=== PATIENT | female | born 1985 | race Caucasian/White ===

== ENCOUNTER → 2017-04-09 | Outpatient (CLI) | payer BC ==
[~2017-04-09] VITALS: Ht 160 cm; Wt 73.5 kg
[~2017-04-09] MED LIST: ALPR0.254 PO; CALC600T12 PO; CHOL400C9 PO; CYAN50008 PO; ENZY1TAB4 PO; FLAX340P PO; IBUP-2055 PO; LACT1CAP62 PO; LEVO5TAB28 PO; MAGN100T PO; OXYM-12 NS; OXYM30SP70 NS
[2017-04-09 15:06] VITALS: BP 119/73
[2017-04-09 15:43] LABS: BASOPHILS % (AUTO) 1 % (0-10); EOSINOPHILS # (AUTO) 0.1 10^3/uL (0.0-0.3); EOSINOPHILS % (AUTO) 1 % (0-10); LYMPHOCYTES # (AUTO) 3.4 X 10^3 (1.0-4.0); LYMPHOCYTES % (AUTO) 53 % (12-44); MEAN CORPUSCULAR HEMOGLOBIN 33 PG (25-34); MEAN CORPUSCULAR HGB CONC 35 G/DL (32-36); MEAN CORPUSCULAR VOLUME 93 FL (80-99); MEAN PLATELET VOLUME 10.9 FL (7.4-10.4); MONOCYTES # (AUTO) 0.6 X 10^3 (0.0-1.0); MONOCYTES % (AUTO) 9 % (0-12); NEUTROPHILS # (AUTO) 2.3 X 10^3 (1.8-7.8); NEUTROPHILS % (AUTO) 36 % (42-75); PLATELET COUNT 264 10^3/uL (130-400); RED BLOOD COUNT 4.74 10^6/uL (4.35-5.85); RED CELL DISTRIBUTION WIDTH 12.5 % (10.0-14.5); WHITE BLOOD COUNT 6.4 10^3/uL (4.3-11.0)
[2017-04-09 16:04] LABS: ANION GAP 9 MMOL/L (5-14); BLOOD UREA NITROGEN 13 MG/DL (7-18); BUN/CREATININE RATIO 16; CALCIUM 9.1 MG/DL (8.5-10.1); CARBON DIOXIDE 28 MMOL/L (21-32); CHLORIDE 105 MMOL/L (98-107); CREATININE SERUM 0.83 MG/DL (0.60-1.30); GFR ESTIMATED > 60; GLUCOSE 97 MG/DL (70-105); POTASSIUM 3.9 MMOL/L (3.6-5.0); SODIUM 142 MMOL/L (135-145)
== END ==
LOC: PREOP 14:41
PROVIDERS: ATTEND Obstetrics & Gynecology
DX: Z01.812 Encounter for preprocedural laboratory examination (principal); Z11.2 Encounter for screening for other bacterial diseases; E28.2 Polycystic ovarian syndrome; R10.2 Pelvic and perineal pain
CPT/HCPCS: 36415; 80048; 85025; 87081

== ENCOUNTER 2017-04-17 06:00 | Day surgery (SDC) | payer BC ==
[~2017-04-17] VITALS: Ht 160 cm; Wt 73.5 kg
[~2017-04-17 06:00] MED LIST changes: -HYDR-757 PO
[2017-04-17] MEDS: LACTATED RINGERS 1,000 ML IV PRN ×2 (06:30→08:10)
[2017-04-17] MEDS ORDERED: BUPIVACAINE 0.25% 30 ML (SENSORCAINE) VIAL ONE (06:32)
[2017-04-17] MEDS ORDERED: SEVOFLURANE (ULTANE) 15 ML INHAL SOLN ONE ×5 (06:40→07:55)
[2017-04-17] MEDS ORDERED: ONDANSETRON 4 MG/2 ML (SDV) Z0FRAN ONE (06:40)
[2017-04-17] MEDS ORDERED: DEXAMETHASONE 10 MG/ML (DECADRON) 1 ML VIAL ONE (06:40)
[2017-04-17] MEDS ORDERED: fentaNYL INJECTION 100 MCG/2 ML AMP ONE ×2 (06:40→08:03)
[2017-04-17] MEDS ORDERED: LIDOCAINE PF 2% 5 ML (XYLOCAINE) VIAL ONE (06:40)
[2017-04-17] MEDS ORDERED: proPOfol 200 MG/20 ML (DIPRIVAN) VIAL IV ONE (06:40)
[2017-04-17] MEDS ORDERED: ROCURONIUM 50 MG/5 ML (ZEMURON) VIAL IV ONE (06:40)
[2017-04-17] MEDS ORDERED: INDIGO CARMINE 8 MG/ML 5 ML AMP ONE (06:43)
[2017-04-17] MEDS ORDERED: MIDAZOLAM 2 MG/2 ML (VERSED) VIAL IV ONE (06:45)
[2017-04-17] MEDS ORDERED: NEOSTIGMINE (BLOXIVERZ ) 1 MG/1ML 10 ML VIAL ONE (06:52)
[2017-04-17] MEDS ORDERED: GLYCOPYRROLATE 0.2 MG/ML (ROBINUL) 2 ML VIAL ONE (06:52)
--- NOTE | 2017-04-17 07:22 | Progress Note-Pre Operative ---
Pre-Operative Progress Note H&P Reviewed The H&P was reviewed, patient examined and no changes noted. Date Seen by Provider: Apr 17, 2017 Time Seen by Provider: 07:15 Date H&P Reviewed: Apr 17, 2017 Time H&P Reviewed: 07:15 Pre-Operative Diagnosis: Pelvic pressure, PCOS, Tubal patentcy, Family hx of endometriosis CARI BARTON DO Apr 17, 2017 7:22 am
[2017-04-17 07:53] VITALS: BP 127/77
[2017-04-17] MEDS ORDERED: D5 LR IV SOLUTION 1,000 ML IV SCH (08:26)
--- NOTE | 2017-04-17 08:26 | Progress Note-Post Operative ---
Post-Operative Progess Note Surgeon (s)/Tractor Technician (s) Surgeon CARI BARTON DO Tractor Technician: na Pre-Operative Diagnosis Pelvic Pressure, PCOS, Tubal Patentcy, Family Hx of Endometriosis Post-Operative Diagnosis same Procedure & Operative Findings Date of Procedure 04/17/17 Procedure Performed/Findings dx laparoscopy with chromotubation, see dictation Anesthesia Type GETA Estimated Blood Loss Estimated blood loss (mL): min Specimens/Packing Specimens Removed none CARI BARTON DO Apr 17, 2017 8:26 am
--- NOTE | 2017-04-17 08:28 | Discharge Inst-Women's Service ---
Discharge Inst-Women's Serv Depart Medication/Instructions New, Converted or Re-Newed RX: RX on Chart Consults/Follow Up Additional Follow Up: Yes Orders/Referrals Dr. Cerrato in 10-14 days Activity Activity: Activity as Tolerated Driving Instructions: No Driving for 1 Week NO SMOKING: NO SMOKING Nothing Inside Vagina: No Douching, No [place], No Tampons Diet Discharge Diet: No Restrictions Symptoms to Report to : Bleeding Excessive, Pain Increased, Fever Over 101 Degrees F, Vaginal Bleeding Increase, Questions/Concerns For Any Problems or Questions: Contact Your Physician Skin/Wound Care Infection Signs and Symptoms: Increased Redness, Foul Odor of Wound, Increased Drainage, Skin Itchy or Has a Rash, Increased Swelling, Temperature Above 101 F Operative Area Clean and Dry: Keep Incision Clean/Dry Stitches/Yas/Dermabond: Dermabond, Care of Stitches Bathing Instructions: CARI Harrell DO Apr 17, 2017 8:28 am
[2017-04-17] MEDS ORDERED: HYDR-757 PO ×2 (08:29)
[2017-04-17] MEDS ORDERED: HYDROcodone/APAP 5 MG/325 MG (LORTAB) TAB PO PRN (08:30)
[2017-04-17] MEDS ORDERED: KETOROLAC 30 MG/ML VIAL IVP ONE ×2 (08:30)
[2017-04-17] MEDS ORDERED: fentaNYL INJECTION 100 MCG/2 ML AMP IVP PRN (08:30)
[2017-04-17] MEDS ORDERED: ONDANSETRON 4 MG/2 ML (SDV) Z0FRAN IVP PRN (08:30)
[2017-04-17] MEDS ORDERED: MEPERIDINE (DEMEROL) INJ 50 MG/ML IVP PRN (08:30)
[2017-04-17] MEDS: morphine INJ 10 MG/ML 1ML (SYR OR VIAL) IVP PRN ×2 (08:37→08:41)
[2017-04-17] MEDS: HYDROmorphone (DILAUDID) 2 MG/ML VIAL IVP PRN ×2 (08:46→08:56)
[2017-04-17] MEDS: ONDANSETRON 4 MG/2 ML (SDV) Z0FRAN IVP PRN ×2 (09:00→09:52)
[2017-04-17 09:10] VITALS: BP 113/74
[2017-04-17 09:40] VITALS: BP 115/75
[2017-04-17 10:10] VITALS: BP 110/79
[2017-04-17 11:16] VITALS: BP 110/79
--- NOTE | 2017-04-17 12:50 | OPERATIVE REPORT ---
DATE OF SERVICE: PREOPERATIVE DIAGNOSES: 1. A 32-year-old female with pelvic pressure. 2. Polycystic ovarian syndrome. 3. Tubal patency. 4. Family history of endometriosis. POSTOPERATIVE DIAGNOSES: 1. A 32-year-old female with pelvic pressure. 2. Polycystic ovarian syndrome. 3. Tubal patency, confirmed. 4. Family history of endometriosis. PROCEDURES: Diagnostic laparoscopy with chromotubation. SURGEON: Ruy Cerrato D.O. ANESTHESIA: General endotracheal. ESTIMATED BLOOD LOSS: Minimal. URINE OUTPUT: 100 mL clear at the end of the procedure. FLUIDS: 1200 mL Lactated Ringer's solution. FINDINGS: Normal appearing uterus with patent bilateral fallopian tubes, patent due to chromotubation, grossly normal ovaries, fallopian tubes and pelvic anatomy as well as upper abdominal anatomy. SPECIMEN SENT: None. INDICATIONS FOR PROCEDURE: This is a 32-year-old female patient who had seen our nurse practitioner, Ginger Suero for infertility management in the past. She has already undergone semen analysis; however, did have complaints of some chronic pelvic pressure as well as painful periods, pelvic pressure that occurred with periods and a strong family history of endometriosis including several first degree relatives that were diagnosed endometriosis and had received hysterectomy for endometriosis. There were concerns for tubal patency as well as endometriosis and she had never had any type of a diagnostic procedure performed to confirm or deny the presence of endometriosis. Due to her history of complaints as well as ongoing fertility and history of potential endometriosis, I discussed with the patient proceeding with diagnostic laparoscopy with chromotubation. Risks of the procedure were discussed with the patient in detail including risk of bleeding, infection, damaging internal structures including but not limited to bowel, bladder, ureter, kidneys, risk of damaging her long-term fertility, risk for postoperative blood clot, hematoma formation, risk from anesthesia and even . Everything was discussed with the patient, consent was obtained in the preoperative area. The patient was taken to the operating room. OPERATIVE REPORT IN DETAIL: Once in the operating room, general anesthesia was found to be adequate. She was placed in dorsal lithotomy position, prepped and draped in normal sterile fashion. A weighted speculum was inserted in the patient's vagina. After Layne catheter was placed in sterile technique, a right angle retractor is used to visualize the cervix. It was grasped at 12 o'clock position using a long Allis clamp. I then gently sound the uterine cavity that are sounded to be 8 cm. I then selected a Kronner uterine manipulator and placed in the uterine cavity, deploying the balloon to a depth of 8 cm. At the removal all other instruments from the patient's vagina, I performed a change of gloves and took my attention to the abdomen where infraumbilically I infiltrated this area using 0.25% Marcaine and make a 5 mm incision of this injection site. Introduced a Veress needle through this incision until intraperitoneal placement was confirmed using a saline drop test. I then proceed with insufflation using CO2 gas to an opening pressure 3 mmHg as noted. I proceeded to measure pressure of 50 mmHg, which when removed the Veress needle introduced a 5 mm blunt trocar. Once this was in place, I am able to confirm intrauterine placement using a 5 mm laparoscope. I did have the patient placed in steep Trendelenburg, I am able to visualize all the pelvic anatomy as described in the findings above. I do require a second trocar site to manipulate the ovaries. I therefore placed a suprapubic trocar 5 mm in similar fashion. An incision was made with a knife and the trocar was placed under direct visualization of the laparoscope. Once this was in place, I am able to confirm normal bilateral ovaries and the absence of any type of endometriosis including endometriosis in the ovarian fossa. I then performed chromotubation using indigo carmine, there is good dye spillage from bilateral tubes at which point I deemed the procedure complete. I then copiously irrigated the pelvis using normal saline. There was no active bleeding from anywhere. I then released insufflation from my trocar sites and removed the laparoscopic trocars. The skin was reapproximated using Dermabond. All instruments were removed from the patient including the Kronner uterine manipulator and the Layne catheter. The patient tolerated the procedure well and was taken to recovery in stable condition. Lap and sponge counts correct. Instruments counts are correct as well. Job ID: [id number] DocumentID: [id number] Dictated Date: 04/17/2017 08:38:26 Lead Sewage Plant Operator Date: 04/17/2017 12:49:43 Dictated By: DO SIVAN HERR
--- OUTSIDE RECORDS SUMMARY | 2017-04-18 08:42 | XMS REPORT ---
Author Kam Lobo [facility] Address [address] [place], [place] [id number] Care Team Providers Care Coding Quality Analyst Name Role Phone Kam Sofia PCP Unavailable Allergies and Adverse Reactions Not available. Plan of Treatment Not available. Medications Not available. Problem List Description Status Onset H/O renal calculi Active 11/13/2015 Vital Signs Date Time BP-Sys(mm[Hg] BP-Delmis(mm[Hg]) HR(bpm) RR(rpm) Temp WT HT HC BMI BSA BMI Percentile O2 Sat(%) 11/13/2015 11:37:00 AM 120 mmHg 74 mmHg 90 bpm 16 rpm 97.8 F 180 lbs 63 in 31.89 kg/m2 1.91 m2 97 % 10/10/2015 12:04:00 PM 122 mmHg 78 mmHg 87 bpm 16 rpm 99.2 F 180 lbs 63 in 31.8852 kg/m 1.905 m 98 % Social History Not available. History of Procedures Not available. Results Summary Data and Description Results 10/11/2015 6:30 AM Color Foster Ca oxalate dihydrate 25.0 %Ca oxalate monohydr. 40 %Calcium phosphate 35.0 %Uric acid dihydrate TESTING MACHINE OPERATOR RatioAmmonium acid urate TESTING MACHINE OPERATOR % Ca hydrogen phos. TESTING MACHINE OPERATOR %Cystine TESTING MACHINE OPERATOR %Cholesterol TESTING MACHINE OPERATOR %Calcium bilirubinate TESTING MACHINE OPERATOR % Calcium carbonate TESTING MACHINE OPERATOR %Triamterene TESTING MACHINE OPERATOR %Newberyite TESTING MACHINE OPERATOR %Nidus No Nidus visualized 10/19/2015 4:10 PM CALCIUM 9.10 mg/dLURIC ACID 4.8 mg/dL 10/22/2015 8:32 AM CALCIUM UR 285.0 mg/dLCALCIUM UR 24H 3278.0 mg/24 hrNA UR 153.0 mEq/MEN'S CUSTOM HAIR PIECE CONSULTANT UR 24H 176.0 URIC ACID UR 48.20 mg/dLURIC ACID UR 24H 554.0 mg/24 hrPhosphorus, Urine 77.80 mg/dLPhosphorus, Urine 24hr 894.7 Citric Acid, Urine 438.0 mg/LCitric Acid, U, 24hr 504 History Of Immunizations Not available. History of Past Illness Name Date of Onset Comments H/O renal calculi 11/13/2015 H/O renal calculi Nov 13 2015 11:40AM Payers Insurance Name Company Name Plan Name Plan Number Policy Number Policy Group Number [facility] Date [id number] N/A History of Encounters Visit Date Visit Type Provider 11/13/2015 Office visit V Tania Sofia MD 10/10/2015 Office visit V Tania Sofia MD
--- OUTSIDE RECORDS SUMMARY | 2017-04-18 08:42 | XMS REPORT | Continuity of Care Document ---
Demographics Preferred Language Unknown Marital Status Unknown Buddhism Affiliation Unknown Race Unknown Ethnic Group Unknown Author Author [facility] Address Unknown Phone Unavailable Allergies There is no data. Medications There is no data. Problems Date Dx Coded Attending Type Code Diagnosis Diagnosed By 11/25/2011 784.2 SWELLING MASS OR LUMP IN HEAD AND NECK 11/25/2011 785.9 OTHER SYMPTOMS INVOLVING CARDIOVASCULAR SYSTEM 11/25/2011 V70.0 ROUTINE GENERAL MEDICAL EXAMINATION AT A HEALTH CARE FACILITY 10/02/2012 709.9 SKIN LESIONS 10/02/2012 728.85 MUSCLE SPASM 10/02/2012 V58.69 HIGH RISK MEDICATION 07/26/2015 PHIL YEBOAH Ot N93.8 10/05/2015 PHIL YEBOAH Ot N93.8 OTHER SPECIFIED ABNORMAL UTERINE AND VAG 10/06/2015 ASIYA PAGE APRN Ot N20.0 CALCULUS OF KIDNEY 11/03/2015 ASIYA PAGE APRN Ot N20.0 CALCULUS OF KIDNEY Procedures Code [place] [address] ROUTINE VENIPUNCTURE 10/02/2012 59391 CMP 10/02/2012 2916286 GFR CALC (RESULT ONLY) 10/02/2012 Results Test Result Range Complete blood count (CBC) with automated white blood cell (WBC) differential - 04/09/17 15:15 Blood leukocytes automated count (number/volume) 6.4 10*3/uL 4.3-11.0 Blood erythrocytes automated count (number/volume) 4.74 10*6/uL 4.35-5.85 Venous blood hemoglobin measurement (mass/volume) 15.5 g/dL 11.5-16.0 Blood hematocrit (volume fraction) 44 % 35-52 Automated erythrocyte mean corpuscular volume 93 [foz_us] 80-99 Automated erythrocyte mean corpuscular hemoglobin (mass per erythrocyte) 33 pg 25-34 Automated erythrocyte mean corpuscular hemoglobin concentration measurement ( mass/volume) 35 g/dL 32-36 Automated erythrocyte distribution width ratio 12.5 % 10.0-14.5 Automated blood platelet count (count/volume) 264 10*3/uL 130-400 Automated blood platelet mean volume measurement 10.9 [foz_us] 7.4-10.4 Automated blood neutrophils/100 leukocytes 36 % 42-75 Automated blood lymphocytes/100 leukocytes 53 % 12-44 Blood monocytes/100 leukocytes 9 % 0-12 Automated blood eosinophils/100 leukocytes 1 % 0-10 Automated blood basophils/100 leukocytes 1 % 0-10 Blood neutrophils automated count (number/volume) 2.3 10*3 1.8-7.8 Blood lymphocytes automated count (number/volume) 3.4 10*3 1.0-4.0 Blood monocytes automated count (number/volume) 0.6 10*3 0.0-1.0 Automated eosinophil count 0.1 10*3/uL 0.0-0.3 Automated blood basophil count (count/volume) 0.0 10*3/uL 0.0-0.1 Whole blood basic metabolic panel - 04/09/17 15:15 Serum or plasma sodium measurement (moles/volume) 142 mmol/L 135-145 Serum or plasma potassium measurement (moles/volume) 3.9 mmol/L 3.6-5.0 Serum or plasma chloride measurement (moles/volume) 105 mmol/L 98-107 Carbon dioxide 28 mmol/L 21-32 Serum or plasma anion gap determination (moles/volume) 9 mmol/L 5-14 Serum or plasma urea nitrogen measurement (mass/volume) 13 mg/dL 7-18 Serum or plasma creatinine measurement (mass/volume) 0.83 mg/dL 0.60-1.30 Serum or plasma urea nitrogen/creatinine mass ratio 16 NRG Serum or plasma creatinine measurement with calculation of estimated glomerular filtration rate > NRG Serum or plasma glucose measurement (mass/volume) 97 mg/dL 70-105 Serum or plasma calcium measurement (mass/volume) 9.1 mg/dL 8.5-10.1 Methicillin resistant Staphylococcus aureus (MRSA) screening culture - 15:20 Methicillin resistant Staphylococcus aureus (MRSA) screening culture NEG NRG Urine beta human chorionic gonadotropin (hCG) measurement - 04/17/17 06:15 Urine beta human chorionic gonadotropin (hCG) measurement NEGATIVE NEGATIVE Blood type T Indirect antibody screen panel - 04/17/17 06:58 ABO+Rh group ABP NRG Transfusion band number [id number] NRG Blood group antibody screen NEGATIVE NRG Encounters ACCT No. Visit Date/Time Discharge Status Pt. Type Provider Facility Loc./Unit Complaint [id number] 10/02/2012 15:23:00 Document Registration [id number] 10/05/2015 16:32:00 10/05/2015 23:59:59 CLS Outpatient ASIYA PAGE APRN [facility] [id number] 07/12/2015 14:31:00 07/12/2015 23:59:59 CLS Outpatient PHIL YEBOAH [facility] [id number] 04/17/2017 07:30:00 PEN Preadmit CARI BARTON DO [facility] PCOS,PELVIC PRESSURE,TUBAL PATENCY [id number] 04/09/2017 15:43:00 Document Registration
--- OUTSIDE RECORDS SUMMARY | 2017-04-18 08:42 | XMS REPORT | CCD ---
Author Author NITA TORRES Unknown Address [address] [place] [id number] Care Team Providers Care Chief Technology Officer Name Role Phone DESIRE COE, CARI Atkinson Attphyjennifer CARI PHIPPS MD Vital Signs Unknown or Not Available. Allergies Allergy Code Allergy Type Reaction Status No Known Allergies 0 No known allergies Active Procedures Procedure Code Procedure Type Date CT ABD AND PELVIS W/O CONTRAST 585159261 SNOMED CT 2015 UA ROUTINE C&S IF IND 375920487 SNOMED CT 09/22/[address] 09/22/2015 COMPREHENSIVE METABOLIC PANEL 205162833 SNOMED CT 2015 CBC W/ AUTO DIFF (RFLX MAN DIFF IF IND) 2682060 SNOMED CT 09/22/2015 ^UA WITH MICRO 830082068 SNOMED CT 09/22/2015 ^CBC W/AUTO DIFF 2084164 SNOMED CT 09/22/2015 History of Immunizations Unknown or Not Available. Problems Unknown or Not Available. Results COMPREHENSIVE METABOLIC PANEL - Collect Date/Time: 09/22/2015 15:05 Test Name Code Test Result Test Units Test Ref Range GLUCOSE 2345-7 90 MG/DL L=70 H=100 SODIUM 2951-2 140 MEQ/L L=135 H=148 POTASSIUM 2823-3 3.9 MEQ/L L=3.5 H=5.3 CHLORIDE 2075-0 106 MEQ/L L=96 H=110 CO2 2028-9 24 MEQ/L L=22 H=29 BUN 3094-0 11 MG/DL L=8 H=22 CREATININE 2160-0 0.8 MG/DL L=0.6 H=1.6 SGOT/AST 1920-8 12 IU/L L=10 H=40 SGPT/ALT 1742-6 14 IU/L L=8 H=54 ALK PHOS 6768-6 71 IU/L L=35 H=115 TOTAL PROTEIN 2885-2 6.2 G/DL L=5.5 H=8.5 ALBUMIN 1751-7 3.9 G/DL L=3.1 H=5.4 TOTAL BILI 1975-2 0.3 MG/DL L=0.0 H=1.5 CALCIUM 66490-2 8.8 MG/DL L=8.2 H=10.6 AGE 30 yrs GFR NonAA 85 GFR AA 103 eGFR >60 N/A eGFR AA* >60 N/A CBC W/ AUTO DIFF (RFLX MAN DIFF IF IND) - Collect Date/Time: 09/22/2015 15:05 Test Name Code Test Result Test Units Test Ref Range WBC 09012-0 6.9 TH/CMM L=4.5 H=10.8 RBC 789-8 4.22 ML/CMM L=4.20 H=5.40 HGB 718-7 13.7 G/DL L=12.0 H=16.0 HCT 4544-3 39.5 % L=37.0 H=47.0 MCV 94 FL L=81 H=99 MCH 32.5 PG L=27.0 H=33.0 MCHC 34.7 G/DL L=31.0 H=36.0 RDW SD 40 FL L=36 H=50 RDW CV 11.7 % L=0.0 H=14.8 MPV 9.7 FL L=9.3 H=12.5 PLT 777-3 260 TH/CMM L=130 H=440 NRBC# 0.00 TH/CMM L=0.00 H=0.00 NRBC% 0.0 /100WBC L=0.0 H=2.0 %NEUT 34.4 % %LYMP 56.1 % %MONO 7.4 % %EOS 1.3 % %BASO 0.7 % #NEUT 2.35 TH/CMM L=2.10 H=8.20 #LYMP 3.85 TH/CMM L=0.90 H=5.20 #MONO 0.51 TH/CMM L=0.16 H=1.00 #EOS 0.09 TH/CMM L=0.00 H=0.80 #BASO 0.05 TH/CMM L=0.00 H=0.20 MANUAL DIFF NOT IND N/A UA ROUTINE C&S IF IND - Collect Date/Time: 09/22/2015 15:30 Test Name Code Test Result Test Units Test Ref Range COLOR ORANGE N/A NL: YELLOW APPEARANCE HAZY N/A NL: CLEAR SPEC GRAV >=1.030 N/A NL: 1.002 - 1.022 pH 6.0 N/A NL: 5 - 9 PROTEIN 100 N/A NL: NEGATIVE mg/dl GLUCOSE NEGATIVE N/A NL: NEGATIVE mg/dl KETONE NEGATIVE N/A NL: NEGATIVE mg/dl BILIRUBIN NEGATIVE N/A NL: NEGATIVE BLOOD LARGE N/A NL: NEGATIVE NITRITE NEGATIVE N/A NL: NEGATIVE LEUK SCREEN NEGATIVE N/A NL: NEGATIVE MICRO INDICATED? SEE BELOW N/A WBC/HPF 0-5 N/A NL: NEGATIVE RBC/HPF TNTC N/A NL: NEGATIVE CASTS/LPF NEGATIVE N/A NL: NEGATIVE CRYSTALS NEGATIVE N/A NL: NEGATIVE MUCOUS THRDS 1+ N/A NL: NEGATIVE BACTERIA FEW N/A NL: NEGATIVE EPITH CELLS FEW SQUAMOUS N/A NL: NEGATIVE TRICHOMONAS NEGATIVE N/A NL: NEGATIVE YEAST NEGATIVE N/A NL: NEGATIVE CULT SET UP? NO N/A TEST - Collect Date/Time: 09/22/2015 15:05 Test Name Code Test Result Test Units Test Ref Range TEST 2118-8 NEGATIVE N/A Active Medications Unknown or Not Available. Medications Administered During Visit Unknown or Not Available. Encounters Encounter Diagnosis Diagnosis Code Start Date Calculus of ureter N201 09/22/2015 Social History Smoking Status Code Start Date End Date Never smoker [id number] Patient Decision Aids Unknown or Not Available. Discharge Instructions You were admitted to [facility] on 09/22/2015 14:22 with a principal diagnosis of Calculus of ureter You had the following tests done: CBC W/ AUTO DIFF (RFLX MAN DIFF IF IND) COMPREHENSIVE METABOLIC PANEL TEST UA ROUTINE C&S IF IND You were discharged from [facility] on 09/22/2015 17:09 Should you have any questions prior to discharge, please contact a member of your healthcare team. If you have left the hospital and have any questions, please contact your primary care physician. Chief Complaint and Reason For Visit Chief Complaint Date of Onset PELVIC PAIN FLANK PAIN Function Status Unknown or Not Available. Plan of Care Unknown or Not Available. Referral/Transition of Care Unknown or Not Available.
== END 2017-04-17 11:16 | disposition home or self-care (01) ==
LOC: SDC 06:00
PROVIDERS: ATTEND Obstetrics & Gynecology
DX: E28.2 Polycystic ovarian syndrome (principal); R10.2 Pelvic and perineal pain; Z31.41 Encounter for fertility testing; Z84.2 Family history of other diseases of the genitourinary system; F41.9 Anxiety disorder, unspecified; Z87.891 Personal history of nicotine dependence; Z79.899 Other long term (current) drug therapy
CPT/HCPCS: 84703; 86850; 86900; 86901

== ENCOUNTER → 2017-04-17 | Outpatient (CLI) | payer BC ==
[~2017-04-17] MED LIST changes: +HYDR-757 PO
== END ==
LOC: LAB 08:19
PROVIDERS: ATTEND Nurse Practitioner Family
DX: R55 Syncope and collapse (principal); R53.81 Other malaise; R42 Dizziness and giddiness
CPT/HCPCS: 36415; 86376; 86800; 94664

== ENCOUNTER → 2018-09-14 | Outpatient (CLI) | payer BC ==
[~2018-09-14] MED LIST changes: +HYDR-4226 PO
--- NOTE | 2018-09-14 14:28 | Diagnostic Imaging Report ---
PROCEDURE: US Non-OB Transvaginal. TECHNIQUE: Multiple real-time grayscale images were obtained of the pelvis in various projections endovaginally. INDICATION: Infertility. FINDINGS: The uterus measures 6.8 x 4.2 x 2.2 cm. Endometrium is approximately 5 mm in thickness. No myometrial mass is detected. Right ovary measures 5.7 x 3.2 x 3.9 cm. Left ovary measures 6.3 x 3.2 x 3.2 cm. There are at least 24 subcentimeter follicles involving the right ovary. There are at least 24 subcentimeter follicles involving the left ovary. There is a single follicle in the left ovary measuring 12 mm. There is blood flow to both ovaries. No free fluid is seen. IMPRESSION: Bilateral ovarian follicles, as described. Dictated by: Dictated on workstation # [id number]
== END ==
LOC: RAD 13:02
DX: N97.9 Female infertility, unspecified (principal)
CPT/HCPCS: 36415; 76830; 82670

== ENCOUNTER → 2020-12-11 | Outpatient (CLI) | payer BC ==
[~2020-12-11] MED LIST changes: +ALPR.25T PO; -ALPR0.254 PO; -CALC600T12 PO; +CALC600T91 PO; -CYAN50008 PO; +CYAN50009 PO; -IBUP-2055 PO; +IBUP-2473 PO; +OX05NA15 NS; -OXYM30SP70 NS
--- NOTE | 2020-12-11 12:33 | Diagnostic Imaging Report ---
INDICATION: . Anatomic survey. 20 weeks and 3 days gestation. TECHNIQUE: Multiple real-time grayscale images were obtained over the gravid uterus. COMPARISON: None FINDINGS: There is a single live intrauterine gestation in breech/transverse presentation. The cervix measures 5.4 cm in length. However there is funneling of the cervix and endocervical fluid and the closed portion measures 2.3 cm. The placenta is anterior without previa. The amniotic fluid appears subjectively normal. A vertical pocket measuring 3.8 cm is present. Biometric measurements are given below. The lateral ventricles, cerebellum, and cisterna magna are seen. The nose and lips are seen. Four-chamber heart is suboptimally seen. The left and right ventricular outflow tracks are seen. The stomach is seen. The kidneys are seen. Cord insertion is seen. Three-vessel cord is demonstrated with 2 uterine arteries. The profile is seen. The upper and lower spine is seen. Biometrical measurements are as follows: Biparietal 4.96 cm, age 21 weeks 1 days. Head circumference 18.67 cm, age 21 weeks 0 days. Abdominal circumference 15.62 cm, age 20 weeks 6 days. Femur length 3.26 cm, age 20 weeks 2 days. Sonographic estimate age: 20 weeks 6 days. Sonographic estimated date of delivery: 04/24/21. Estimated Weight: 363 gm (+/- 53 gm). LMP percentile: 53%. heart rate: 143 beats per minute. number: 1 of 1. IMPRESSION: 1. Single live intrauterine gestation measuring at 20 weeks and 6 days which is within range of the clinical dates. 2. Funneling of the cervix with endocervical fluid. The closed portion measures 2.3 cm, concerning for incompetence. Recommend follow-up. 3. Anatomic survey with no abnormality seen. The four-chamber heart is suboptimally visualized.\ Faxed to Ruy Cerrato DO at 12:32 p.m. by pablo. Dictated by: Dictated on workstation # [id number]
== END ==
LOC: RAD 09:30
PROVIDERS: ATTEND Obstetrics & Gynecology
DX: Z34.02 Encounter for supervision of normal first pregnancy, second trimester (principal)
CPT/HCPCS: 76805

== ENCOUNTER 2020-12-26 12:46 | Outpatient (CLI) | payer BC ==
[2020-12-26 13:00] VITALS: BP 161/90
[2020-12-26] MEDS ORDERED: AMPICILLIN FOR IV USE 2,000 MG in WATER (STERILE) FOR INJECTION 14.8 ML IV ONE (13:00)
[2020-12-26] MEDS ORDERED: INDOMETHACIN 25 MG (INDOCIN) CAP PO ONE (13:00)
[2020-12-26] MEDS ORDERED: D5 LR IV SOLUTION 1,000 ML IV SCH (13:00)
[2020-12-26 13:34] VITALS: BP 121/84
[2020-12-26] MEDS ORDERED: BETAMETHASONE ACE/NA PHOS 6 MG/ML (CELESTONE SOLUSPAN) ONE (13:38)
[2020-12-26 13:41] LABS: BASOPHILS % (AUTO) 0 % (0-10); EOSINOPHILS # (AUTO) 0.1 10^3/uL (0.0-0.3); EOSINOPHILS % (AUTO) 1 % (0-10); HEMATOCRIT 39 % (35-52); HEMOGLOBIN 13.8 g/dL (11.5-16.0); LYMPHOCYTES # (AUTO) 2.6 10^3/uL (1.0-4.0); LYMPHOCYTES % (AUTO) 26 % (12-44); MEAN CORPUSCULAR HEMOGLOBIN 33 pg (25-34); MEAN CORPUSCULAR HGB CONC 36 g/dL (32-36); MEAN CORPUSCULAR VOLUME 93 fL (80-99); MEAN PLATELET VOLUME 10.6 fL (9.0-12.2); MONOCYTES # (AUTO) 0.9 10^3/uL (0.0-1.0); MONOCYTES % (AUTO) 9 % (0-12); NEUTROPHILS # (AUTO) 6.4 10^3/uL (1.8-7.8); NEUTROPHILS % (AUTO) 63 % (42-75); PLATELET COUNT 264 10^3/uL (130-400); WHITE BLOOD COUNT 10.1 10^3/uL (4.3-11.0)
[2020-12-26] MEDS ORDERED: AZITHROMYCIN INJECTION 500 MG/5 ML VIAL ONE (13:41)
[2020-12-26] MEDS ORDERED: WATER (STERILE) FOR INJECTION 0 ML ONE (13:44)
[2020-12-26] MEDS ORDERED: NS (IVPB) 250 ML ONE (13:47)
[2020-12-26 13:52] VITALS: BP 161/90
[2020-12-26 14:05] VITALS: BP 111/71
--- NOTE | 2020-12-26 14:10 | History & Physical-OB ---
OB - Chief Complaint & HPI Date/Time Date of Admission: Date of Admission: Date seen by a Provider: Dec 26, 2020 Time Seen by a Provider: 12:30 Chief Complaint/History OB-Reason for Admission/Chief: Obstetrical Complication Hx : 2 Hx Para: 0 Expected Date of Delivery: Apr 27, 2021 Other reason for admission: Patient to hospital from office due to bulging membranes noted on spec exam in office, approx 1 cm visually dialated. She was noted to have funnelling at 20 week US, follow up US and exam done today due to this TA US finding. Patient is completely asymptomatic. Admission Nurse Assessment Rev: Yes History of Labs AB pos Antibody neg RI RPR NR HBsAg NR HIV NR GC neg GBS unknown Laboratory Tests Test 12/26/20 13:08 Range/Units White Blood Count 10.1 4.3-11.0 10^3/uL Red Blood Count 4.14 3.80-5.11 10^6/uL Hemoglobin 13.8 11.5-16.0 g/dL Hematocrit 39 35-52 % Mean Corpuscular Volume 93 80-99 fL Mean Corpuscular Hemoglobin 33 25-34 pg Mean Corpuscular Hemoglobin Concent 36 32-36 g/dL Red Cell Distribution Width 13.2 10.0-14.5 % Platelet Count 264 130-400 10^3/uL Mean Platelet Volume 10.6 9.0-12.2 fL Immature Granulocyte % (Auto) 0 % Neutrophils (%) (Auto) 63 42-75 % Lymphocytes (%) (Auto) 26 12-44 % Monocytes (%) (Auto) 9 0-12 % Eosinophils (%) (Auto) 1 0-10 % Basophils (%) (Auto) 0 0-10 % Neutrophils # (Auto) 6.4 1.8-7.8 10^3/uL Lymphocytes # (Auto) 2.6 1.0-4.0 10^3/uL Monocytes # (Auto) 0.9 0.0-1.0 10^3/uL Eosinophils # (Auto) 0.1 0.0-0.3 10^3/uL Basophils # (Auto) 0.0 0.0-0.1 10^3/uL Immature Granulocyte # (Auto) 0.0 0.0-0.1 10^3/uL Allergies and Home Medications Allergies Coded Allergies: No Known Drug Allergies (Unverified , 12/27/17) Patient Home Medication List Home Medication List Reviewed: Yes ALPRAZolam (Xanax Tablet) 0.25 Mg Tablet, 0.25 MG PO DAILY, (Reported) Entered as Reported by: MELITA MOLINA on 04/09/17 1502 Calcium Carbonate (Calcium) 600 Mg Tablet, 600 MG PO DAILY, (Reported) Entered as Reported by: MELITA MOLINA on 04/09/17 1502 Cholecalciferol (Vitamin D3) (Vitamin D3) 400 Unit Capsule, 400 UNIT PO DAILY, (Reported) Entered as Reported by: MELITA MOLINA on 04/09/17 1502 Cyanocobalamin (Vitamin B-12) (Vitamin B12) 5,000 Mcg Tab.rapdis, 5,000 MCG PO BIDPC, (Reported) Entered as Reported by: MELITA MOLINA on 04/09/17 1502 Enzymes,Digestive (Enzymatic Digestant) 1 Each Tablet, 1 EACH PO DAILY, (Reported) Entered as Reported by: MELITA MOLINA on 04/09/17 1502 Flaxseed (Flaxseed) 340 Gm Powder, 340 GM PO DAILY, (Reported) Entered as Reported by: MELITA MOLINA on 04/09/17 1502 Hydrocodone/Acetaminophen (Hydrocodone/Acetaminophen 5 MG/325 MG TAB) 1 Each Tablet, 1-2 TAB PO Q4H PRN for PAIN-MODERATE Prescribed by: CARI BARTON on 04/17/17 0829 Ibuprofen (Ibuprofen) 200 Mg Tablet, 800 MG PO PRN, (Reported) Entered as Reported by: MELITA MOLINA on 04/09/17 1502 Lactobacillus Acidophilus (Probiotic) 1 Each Capsule, 1 EACH PO DAILY, (Reported) Entered as Reported by: MELITA MOLINA on 04/09/17 1502 Levocetirizine Dihydrochloride (Xyzal) 5 Mg Tablet, 5 MG PO HS, (Reported) Entered as Reported by: MELITA MOLINA on 04/09/17 1502 Magnesium Glycinate (Mag Glycinate) 100 Mg Tablet, 100 MG PO QID, (Reported) Entered as Reported by: MELITA MOLINA on 04/09/17 1502 Oxymetazoline HCl (Oxymetazoline HCl) 30 Ml [place], 1 SPRAY NS BID, (Reported) Entered as Reported by: MELITA MOLINA on 04/09/17 1502 OB - History Hx of Present Care: Yes Ultrasounds: Normal mid trimester US (funneling membranes) Obstetrical Complications: None Medical Complications: None Obstetrical History Hx : 2 Hx Para: 0 Hx Total # of Abortions (Spona: 1 Delivery History Hx Blood Disorders: No Adverse Rxn to Tranfusion: No (N/A) Patient Past Medical History n/a Social History/Family History Alcohol Use: Denies Use Recreational Drug Use: No Immunizations Tetanus Booster (TDap): Unknown OB - Admission Exam Physical Exam Vitals: Vital Signs 12/26/20 13:52 Temp 36.7 Pulse 105 Resp 20 Pulse Ox 97 O2 Delivery Room Air HEENT: NCAT Heart: Rhythm Normal Lungs: Clear Abdomen: Gravid Extremities: Normal Reflexes: Normal Cervical Dilatation: 1cm Membranes: Intact Heart Rate: 130's Contractions on Admission: None Labs Laboratory Tests Test 12/26/20 13:08 Range/Units White Blood Count 10.1 4.3-11.0 10^3/uL Red Blood Count 4.14 3.80-5.11 10^6/uL Hemoglobin 13.8 11.5-16.0 g/dL Hematocrit 39 35-52 % Mean Corpuscular Volume 93 80-99 fL Mean Corpuscular Hemoglobin 33 25-34 pg Mean Corpuscular Hemoglobin Concent 36 32-36 g/dL Red Cell Distribution Width 13.2 10.0-14.5 % Platelet Count 264 130-400 10^3/uL Mean Platelet Volume 10.6 9.0-12.2 fL Immature Granulocyte % (Auto) 0 % Neutrophils (%) (Auto) 63 42-75 % Lymphocytes (%) (Auto) 26 12-44 % Monocytes (%) (Auto) 9 0-12 % Eosinophils (%) (Auto) 1 0-10 % Basophils (%) (Auto) 0 0-10 % Neutrophils # (Auto) 6.4 1.8-7.8 10^3/uL Lymphocytes # (Auto) 2.6 1.0-4.0 10^3/uL Monocytes # (Auto) 0.9 0.0-1.0 10^3/uL Eosinophils # (Auto) 0.1 0.0-0.3 10^3/uL Basophils # (Auto) 0.0 0.0-0.1 10^3/uL Immature Granulocyte # (Auto) 0.0 0.0-0.1 10^3/uL OB - Assessment/Plan/Diagnosis Assessment Admission Dx 35 yo @ 22.4 weeks Cervical insufficiency Admission Status: Inpatient Order (span 2 midnights) Reason for Inpatient Admission: Cervical insufficiency Plan Other Plan Spoke with MFM at [facility] Dr. Parekh, accepted transfer for consideration of rescue cerclage. Indocin started here with BMZ given. Amp/Azithromycin dosed. Awaiting transfer. CARI BARTON DO Dec 26, 2020 14:10
[2020-12-26 14:13] LABS: BILIRUBIN,URINE NEGATIVE (NEGATIVE); CLARITY,URINE CLEAR; COLOR,URINE YELLOW; GLUCOSE, URINE (UA) NEGATIVE (NEGATIVE); KETONES,URINE TRACE (NEGATIVE); LEUKOCYTE ESTERASE ,URINE TRACE (NEGATIVE); NITRITE,URINE NEGATIVE (NEGATIVE); PH,URINE 7.5 (5-9); PROTEIN,URINE NEGATIVE (NEGATIVE)
[2020-12-26 14:23] LABS: BACTERIA,URINE FEW /HPF; SQUAMOUS EPITHELIAL CELL,UR 0-2 /HPF; WBC,URINE RARE /HPF
[2020-12-26 14:25] VITALS: BP 119/74
[2020-12-26] MEDS ORDERED: INDOMETHACIN 25 MG (INDOCIN) CAP PO SCH (18:00)
[2020-12-26] MEDS ORDERED: AMPICILLIN FOR IV USE 1,000 MG in WATER (STERILE) FOR INJECTION 7.4 ML IV SCH (18:00)
[2020-12-27] MEDS ORDERED: BETAMETHASONE ACE/NA PHOS 6 MG/ML (CELESTONE SOLUSPAN) IM SCH (09:00)
[2020-12-27] MEDS ORDERED: AZITHROMYCIN INJECTION 500 MG in NS (IVPB) 250 ML IV SCH (09:00)
== END 2020-12-26 14:45 ==
LOC: WSo 12:46 → LDRP 12:47 → WSo 14:45
PROVIDERS: ATTEND Obstetrics & Gynecology
DX: O34.32 Maternal care for cervical incompetence, second trimester (principal); Z3A.22 22 weeks gestation of pregnancy
CPT/HCPCS: 36415; 81000; 85025; 86141; 86850; 86900; 86901; 96361; 96372; 96374; 96375

== ENCOUNTER 2021-01-06 13:30 | Outpatient (CLI) | payer BC ==
[~2021-01-06] VITALS: Ht 162.6 cm; Wt 82.3 kg
[2021-01-06 13:59] LABS: BILIRUBIN,URINE NEGATIVE (NEGATIVE); CLARITY,URINE CLEAR; COLOR,URINE YELLOW; GLUCOSE, URINE (UA) NEGATIVE (NEGATIVE); KETONES,URINE 3+ (NEGATIVE); LEUKOCYTE ESTERASE ,URINE NEGATIVE (NEGATIVE); NITRITE,URINE NEGATIVE (NEGATIVE); PROTEIN,URINE 1+ (NEGATIVE)
[2021-01-06 14:00] VITALS: BP 130/79
[2021-01-06 14:25] LABS: WBC,URINE RARE /HPF
[2021-01-06 14:43] LABS: BACTERIA,URINE MODERATE /HPF
[2021-01-06] MEDS ORDERED: NS IV 1000 ML 1,000 ML ONE (14:43)
[2021-01-06] MEDS ORDERED: ONDANSETRON 4 MG/2 ML (SDV) Z0FRAN ONE (14:43)
[2021-01-06 14:44] LABS: SQUAMOUS EPITHELIAL CELL,UR 0-2 /HPF
[2021-01-06] MEDS ORDERED: NS IV 1000 ML 1,000 ML IV SCH (14:45)
[2021-01-06] MEDS ORDERED: ONDANSETRON 4 MG/2 ML (SDV) Z0FRAN IVP ONE (14:45)
[2021-01-06 15:03] LABS: BASOPHILS % (AUTO) 0 % (0-10); EOSINOPHILS % (AUTO) 0 % (0-10); HEMATOCRIT 39 % (35-52); HEMOGLOBIN 13.7 g/dL (11.5-16.0); LYMPHOCYTES # (AUTO) 0.7 X 10^3 (1.0-4.0); LYMPHOCYTES % (AUTO) 7 % (12-44); MEAN CORPUSCULAR HEMOGLOBIN 33 pg (25-34); MEAN CORPUSCULAR HGB CONC 35 g/dL (32-36); MEAN CORPUSCULAR VOLUME 95 fL (80-99); MEAN PLATELET VOLUME 9.8 fL (9.0-12.2); MONOCYTES # (AUTO) 0.4 X 10^3 (0.0-1.0); MONOCYTES % (AUTO) 4 % (0-12); NEUTROPHILS % (AUTO) 89 % (42-75); PLATELET COUNT 257 10^3/uL (130-400); WHITE BLOOD COUNT 11.2 10^3/uL (4.3-11.0)
[2021-01-06 15:13] LABS: ALBUMIN 3.6 GM/DL (3.2-4.5); POTASSIUM 3.9 MMOL/L (3.6-5.0)
[2021-01-06 15:15] LABS: CALCIUM 8.7 MG/DL (8.5-10.1)
[2021-01-06 15:16] LABS: TOTAL PROTEIN 6.4 GM/DL (6.4-8.2)
[2021-01-06 15:18] LABS: BILIRUBIN,TOTAL 0.5 MG/DL (0.1-1.0)
[2021-01-06 15:19] LABS: CREATININE SERUM 0.69 MG/DL (0.60-1.30)
[2021-01-06 15:31] LABS: BAND NEUTROPHILS 0 %; BASOPHILS % (MANUAL) 0 %; EOSINOPHILS % (MANUAL) 0 %; LYMPHOCYTES % (MANUAL) 6 %; MONOCYTES % (MANUAL) 5 %; NEUTROPHILS % (MANUAL) 89 %; RBC MORPH NORMAL
[2021-01-06] MEDS ORDERED: ACETAMINOPHEN 500 MG TAB (TYLENOL) ONE (15:53)
[2021-01-06] MEDS ORDERED: ACETAMINOPHEN 500 MG TAB (TYLENOL) PO ONE (16:00)
--- NOTE | 2021-01-08 08:16 | Physician Query-Final Dx ---
Clinic Account Progress/Dx Physician Query: Please give diagnosis Please include # weeks gestation Date of Service Jan 06, 2021 at 13:30 BRONSON MARTINO Jan 08, 2021 08:16
== END 2021-01-06 17:00 | disposition home or self-care (01) ==
LOC: LDRP 13:30 → WSo 13:30
PROVIDERS: ATTEND Obstetrics & Gynecology
DX: O21.9 Vomiting of pregnancy, unspecified (principal); Z3A.00 Weeks of gestation of pregnancy not specified
CPT/HCPCS: 36415; 80053; 81000; 82150; 83690; 85007; 85027; 87088; 96361; 96374; 99214

== ENCOUNTER 2021-04-06 16:07 | Outpatient (CLI) | payer BC ==
[2021-04-06] VITALS (8 sets, daily range): BP systolic 129–143; BP diastolic 87–103
[~2021-04-06] VITALS: Ht 160 cm; Wt 89.2 kg
[2021-04-06] MEDS ORDERED: CETI10CA PO (16:31)
[2021-04-06] MEDS ORDERED: MAGN100T5 PO (16:31)
[2021-04-06] MEDS ORDERED: GLYB1.253 PO (16:31)
[2021-04-06] MEDS ORDERED: ASCO500C18 PO (16:31)
[2021-04-06] MEDS ORDERED: ANTACID SUSP 30 ML UDC (MYLANTA) PO ONE (17:15)
[2021-04-06] MEDS ORDERED: FAMOTIDINE 20 MG (PEPCID) TABLET PO ONE (17:15)
[2021-04-06 17:22] LABS: BASOPHILS % (AUTO) 0 % (0-10); EOSINOPHILS # (AUTO) 0.1 10^3/uL (0.0-0.3); EOSINOPHILS % (AUTO) 2 % (0-10); HEMATOCRIT 41 % (35-52); HEMOGLOBIN 14.3 g/dL (11.5-16.0); LYMPHOCYTES # (AUTO) 2.8 10^3/uL (1.0-4.0); LYMPHOCYTES % (AUTO) 35 % (12-44); MEAN CORPUSCULAR HEMOGLOBIN 33 pg (25-34); MEAN CORPUSCULAR HGB CONC 35 g/dL (32-36); MEAN CORPUSCULAR VOLUME 95 fL (80-99); MEAN PLATELET VOLUME 10.7 fL (9.0-12.2); MONOCYTES # (AUTO) 0.8 10^3/uL (0.0-1.0); MONOCYTES % (AUTO) 10 % (0-12); NEUTROPHILS # (AUTO) 4.2 10^3/uL (1.8-7.8); NEUTROPHILS % (AUTO) 53 % (42-75); PLATELET COUNT 230 10^3/uL (130-400); WHITE BLOOD COUNT 7.9 10^3/uL (4.3-11.0)
[2021-04-06] MEDS ORDERED: ANTACID SUSP 30 ML UDC (MYLANTA) ONE (17:25)
[2021-04-06 17:28] LABS: ALBUMIN 3.1 GM/DL (3.2-4.5)
[2021-04-06 17:29] LABS: POTASSIUM 3.3 MMOL/L (3.6-5.0)
[2021-04-06 17:30] LABS: CALCIUM 8.5 MG/DL (8.5-10.1)
[2021-04-06 17:31] LABS: TOTAL PROTEIN 5.8 GM/DL (6.4-8.2)
[2021-04-06 17:33] LABS: BILIRUBIN,TOTAL 0.3 MG/DL (0.1-1.0)
[2021-04-06 17:35] LABS: CREATININE SERUM 0.75 MG/DL (0.60-1.30)
[2021-04-06] MEDS ORDERED: FAMOTIDINE 20 MG (PEPCID) TABLET ONE (17:49)
--- NOTE | 2021-04-07 12:59 | Physician Query-Final Dx ---
Clinic Account Progress/Dx Physician Query: Date of Service Apr 06, 2021 at 16:07 DIAGNOSIS: Diagnosis 37 week gestation elevated blood pressure gestational hypertension OMARI RICHARDS DO Apr 07, 2021 12:58
== END 2021-04-06 18:05 | disposition home or self-care (01) ==
LOC: WSo 16:07 → LDRP 16:10 → WSo 18:05
PROVIDERS: ATTEND Obstetrics & Gynecology
DX: O16.3 Unspecified maternal hypertension, third trimester (principal); Z3A.37 37 weeks gestation of pregnancy
CPT/HCPCS: 36415; 80053; 82570; 83615; 84156; 85025; 99213

== ENCOUNTER 2021-04-10 11:05 | Outpatient (CLI) | payer BC ==
[2021-04-10] VITALS (9 sets, daily range): BP systolic 119–135; BP diastolic 78–93
[~2021-04-10] VITALS: Ht 160 cm; Wt 88.9 kg
[~2021-04-10 11:05] MED LIST changes: +ASCO500C18 PO; +CETI10CA PO; +GLYB1.253 PO; +MAGN100T5 PO
[2021-04-10] MEDS ORDERED: FAMOTIDINE 20 MG (PEPCID) TABLET PO ONE (12:30)
[2021-04-10] MEDS ORDERED: FAMOTIDINE 20 MG (PEPCID) TABLET ONE (12:37)
[2021-04-10 12:45] LABS: BASOPHILS % (AUTO) 0 % (0-10); EOSINOPHILS # (AUTO) 0.1 10^3/uL (0.0-0.3); EOSINOPHILS % (AUTO) 1 % (0-10); HEMATOCRIT 41 % (35-52); HEMOGLOBIN 14.4 g/dL (11.5-16.0); LYMPHOCYTES # (AUTO) 2.3 10^3/uL (1.0-4.0); LYMPHOCYTES % (AUTO) 26 % (12-44); MEAN CORPUSCULAR HEMOGLOBIN 33 pg (25-34); MEAN CORPUSCULAR HGB CONC 35 g/dL (32-36); MEAN CORPUSCULAR VOLUME 94 fL (80-99); MEAN PLATELET VOLUME 10.8 fL (9.0-12.2); MONOCYTES # (AUTO) 0.7 10^3/uL (0.0-1.0); MONOCYTES % (AUTO) 8 % (0-12); NEUTROPHILS # (AUTO) 5.9 10^3/uL (1.8-7.8); NEUTROPHILS % (AUTO) 65 % (42-75); PLATELET COUNT 238 10^3/uL (130-400)
[2021-04-10 13:05] LABS: ALBUMIN 3.2 GM/DL (3.2-4.5); BILIRUBIN,TOTAL 0.3 MG/DL (0.1-1.0); CALCIUM 8.9 MG/DL (8.5-10.1); CREATININE SERUM 0.73 MG/DL (0.60-1.30); POTASSIUM 3.3 MMOL/L (3.6-5.0); TOTAL PROTEIN 5.9 GM/DL (6.4-8.2); URIC ACID 4.2 MG/DL (2.6-7.2)
--- NOTE | 2021-04-11 08:22 | Physician Query-Final Dx ---
SALENA04/11/21 0822: Clinic Account Progress/Dx Physician Query: Please give diagnosis Please include # weeks gestation Date of Service Apr 10, 2021 at 11:05 CARI BARTON DO 04/12/21 0706: Clinic Account Progress/Dx DIAGNOSIS: Diagnosis 36 yo @ 37 weeks GDM GHTN Cervical incompetence [place],AprApr 11, 2021 08:22 CARI BARTON DO Apr 12, 2021 07:06
== END 2021-04-10 13:33 | disposition home or self-care (01) ==
LOC: WSo 11:05 → LDRP 11:18 → WSo 13:33
PROVIDERS: ATTEND Obstetrics & Gynecology
DX: O16.3 Unspecified maternal hypertension, third trimester (principal); Z3A.37 37 weeks gestation of pregnancy
CPT/HCPCS: 36415; 80053; 82570; 84156; 84550; 85025

== ENCOUNTER 2021-04-12 05:59 | Inpatient (IN) | payer BC ==
[~2021-04-12] VITALS: Ht 160 cm; Wt 88.6 kg
[2021-04-12] VITALS (41 sets, daily range): BP systolic 100–180; BP diastolic 59–104
[2021-04-12] MEDS ORDERED: MINERAL OIL CONCENTRATE 99.9% 15 ML UDC TOP PRN (06:30)
[2021-04-12 07:28] LABS: BILIRUBIN,URINE NEGATIVE (NEGATIVE); CLARITY,URINE SL CLOUDY; COLOR,URINE YELLOW; GLUCOSE, URINE (UA) NEGATIVE (NEGATIVE); KETONES,URINE 1+ (NEGATIVE); LEUKOCYTE ESTERASE ,URINE 3+ (NEGATIVE); NITRITE,URINE NEGATIVE (NEGATIVE); PROTEIN,URINE NEGATIVE (NEGATIVE)
[2021-04-12 07:48] LABS: BASOPHILS % (AUTO) 0 % (0-10); EOSINOPHILS # (AUTO) 0.1 10^3/uL (0.0-0.3); EOSINOPHILS % (AUTO) 1 % (0-10); HEMATOCRIT 44 % (35-52); HEMOGLOBIN 15.4 g/dL (11.5-16.0); LYMPHOCYTES % (AUTO) 20 % (12-44); MEAN CORPUSCULAR HEMOGLOBIN 33 pg (25-34); MEAN CORPUSCULAR HGB CONC 35 g/dL (32-36); MEAN CORPUSCULAR VOLUME 94 fL (80-99); MEAN PLATELET VOLUME 10.9 fL (9.0-12.2); MONOCYTES # (AUTO) 0.7 10^3/uL (0.0-1.0); MONOCYTES % (AUTO) 6 % (0-12); NEUTROPHILS # (AUTO) 7.3 10^3/uL (1.8-7.8); NEUTROPHILS % (AUTO) 73 % (42-75); PLATELET COUNT 239 10^3/uL (130-400); WHITE BLOOD COUNT 10.1 10^3/uL (4.3-11.0)
[2021-04-12] MEDS: D5 LR IV SOLUTION 1,000 ML IV SCH ×2 (07:51→14:44)
[2021-04-12 07:52] LABS: AMORPHOUS SEDIMENT,UR MOD AMOR PHOSPHATE /LPF; BACTERIA,URINE LARGE /HPF
--- NOTE | 2021-04-12 08:21 | History & Physical-OB ---
OB - Chief Complaint & HPI Date/Time Date of Admission: Date of Admission: Apr 12, 2021 at 06:00 Date seen by a Provider: Apr 12, 2021 Time Seen by a Provider: 07:20 Chief Complaint/History OB-Reason for Admission/Chief: Induction of Labor Hx : 2 Hx Para: 0 Expected Date of Delivery: Apr 27, 2021 Gestational Age in Weeks: 37 Gestational Age in Days: 6 Admission Nurse Assessment Rev: Yes Allergies and Home Medications Allergies Coded Allergies: No Known Drug Allergies (Unverified , 04/09/17) Patient Home Medication List Home Medication List Reviewed: Yes Ascorbic Acid (Vitamin C) 500 Mg Capsule.er, 500 MG PO DAILY, (Reported) Entered as Reported by: BHARATI GASPAR on 04/06/21 163 Last Action: Last Taken Edited Cetirizine HCl (Zyrtec) 10 Mg Capsule, 10 MG PO DAILY, (Reported) Entered as Reported by: BHARATI GASPAR on 04/06/21 163 Last Action: Last Taken Edited Cholecalciferol (Vitamin D3) (Vitamin D3) 400 Unit Capsule, 400 UNIT PO DAILY, (Reported) Entered as Reported by: MELITA MOLINA on 04/09/17 1502 Last Action: Last Taken Edited Glyburide (Glyburide) 1.25 Mg Tablet, 1.25 MG PO DAILY, (Reported) Entered as Reported by: BHARATI GASPAR on 04/06/21 1631 Magnesium Amino Acid Chelate (Magnesium) 100 Mg Tablet, 100 MG PO DAILY, (Reported) Entered as Reported by: BHARATI GASPAR on 04/06/21 1631 Oxymetazoline HCl (Oxymetazoline HCl) 30 Ml [place], 1 SPRAY NS BID, (Reported) Entered as Reported by: MELITA MOLINA on 04/09/17 1502 Discontinued Medications ALPRAZolam (Xanax Tablet) 0.25 Mg Tablet, 0.25 MG PO DAILY, (Reported) Discontinued Reason: No Longer Taking Entered as Reported by: MELITA MOLINA on 04/09/17 1502 Calcium Carbonate (Calcium) 600 Mg Tablet, 600 MG PO DAILY, (Reported) Discontinued Reason: No Longer Taking Entered as Reported by: MELTIA MOLINA on 04/09/17 1502 Cyanocobalamin (Vitamin B-12) (Vitamin B12) 5,000 Mcg Tab.rapdis, 5,000 MCG PO BIDPC, (Reported) Discontinued Reason: No Longer Taking Entered as Reported by: MELITA MOLINA on 04/09/17 1502 Enzymes,Digestive (Enzymatic Digestant) 1 Each Tablet, 1 EACH PO DAILY, (Reported) Discontinued Reason: No Longer Taking Entered as Reported by: MELITA MOLINA on 04/09/17 1502 Flaxseed (Flaxseed) 340 Gm Powder, 340 GM PO DAILY, (Reported) Discontinued Reason: No Longer Taking Entered as Reported by: MELITA MOLINA on 04/09/17 1502 Lactobacillus Acidophilus (Probiotic) 1 Each Capsule, 1 EACH PO DAILY, (Reported) Discontinued Reason: No Longer Taking Entered as Reported by: MELITA MOLINA on 04/09/17 1502 Levocetirizine Dihydrochloride (Xyzal) 5 Mg Tablet, 5 MG PO HS, (Reported) Discontinued Reason: No Longer Taking Entered as Reported by: MELITA MOLINA on 04/09/17 1502 Magnesium Glycinate (Mag Glycinate) 100 Mg Tablet, 100 MG PO QID, (Reported) Discontinued Reason: No Longer Taking Entered as Reported by: MELITA MOLINA on 04/09/17 1502 OB - History Hx of Present Care: Yes Ultrasounds: Normal mid trimester US Obstetrical Complications: Gestational Diabetes, Gestational Hypertension, Other (incompetent cervix, rescue cerclage placed at 22 weeks, removed at 37) Medical Complications: None Delivery History Hx Blood Disorders: No Adverse Rxn to Tranfusion: No (N/A) Patient Past Medical History n/a Social History/Family History 2nd Hand Smoke Exposure: No Immunizations Influenza Vaccine Up-to-Date: No; Not Current Tetanus Booster (TDap): Unknown OB - Admission Exam Physical Exam Vitals: Vital Signs 04/12/21 06:41 Temp 36.5 Pulse 108 Resp 16 Pulse Ox 99 O2 Delivery Room Air HEENT: NCAT Heart: Rhythm Normal Lungs: Clear Abdomen: Gravid Extremities: Normal Reflexes: Normal Cervical Dilatation: 3cm Effacement: 50% Station: -1 Membranes: Intact Heart Rate: 130's Accelerations: Accelerations Present Decelerations: No Decelerations Short Term Variability: Present Cooker Tender Variability: Average (6-25) Contractions on Admission: 6-10 Minutes Apart Intensity: Mild Labs Laboratory Tests Test 04/12/21 06:15 04/12/21 07:20 Range/Units Urine Color YELLOW Urine Clarity SL CLOUDY Urine pH 7.0 5-9 Urine Specific [place] 1.015 L 1.016-1.022 Urine Protein NEGATIVE NEGATIVE Urine Glucose (UA) NEGATIVE NEGATIVE Urine Ketones 1+ H NEGATIVE Urine Nitrite NEGATIVE NEGATIVE Urine Bilirubin NEGATIVE NEGATIVE Urine Urobilinogen 0.2 < = 1.0 MG/DL Urine Leukocyte Esterase 3+ H NEGATIVE Urine RBC (Auto) 3+ H NEGATIVE Urine RBC 5-10 H /HPF Urine WBC 10-25 H /HPF Urine Squamous Epithelial Cells 5-10 /HPF Urine Crystals PRESENT H /LPF Urine Amorphous Sediment MOD RADHA PHOSPHATE H /LPF Urine Bacteria LARGE H /HPF Urine Casts NONE /LPF Urine Mucus NEGATIVE /LPF Urine Culture Indicated YES White Blood Count 10.1 4.3-11.0 10^3/uL Red Blood Count 4.69 3.80-5.11 10^6/uL Hemoglobin 15.4 11.5-16.0 g/dL Hematocrit 44 35-52 % Mean Corpuscular Volume 94 80-99 fL Mean Corpuscular Hemoglobin 33 25-34 pg Mean Corpuscular Hemoglobin Concent 35 32-36 g/dL Red Cell Distribution Width 13.9 10.0-14.5 % Platelet Count 239 130-400 10^3/uL Mean Platelet Volume 10.9 9.0-12.2 fL Immature Granulocyte % (Auto) 0 % Neutrophils (%) (Auto) 73 42-75 % Lymphocytes (%) (Auto) 20 12-44 % Monocytes (%) (Auto) 6 0-12 % Eosinophils (%) (Auto) 1 0-10 % Basophils (%) (Auto) 0 0-10 % Neutrophils # (Auto) 7.3 1.8-7.8 10^3/uL Lymphocytes # (Auto) 2.0 1.0-4.0 10^3/uL Monocytes # (Auto) 0.7 0.0-1.0 10^3/uL Eosinophils # (Auto) 0.1 0.0-0.3 10^3/uL Basophils # (Auto) 0.0 0.0-0.1 10^3/uL Immature Granulocyte # (Auto) 0.0 0.0-0.1 10^3/uL OB - Assessment/Plan/Diagnosis Assessment Assessment: induction of labor Admission Dx 36 yo @ 37.6 weeks GDM GHTN Cervical incompetence AMA GBS neg Admission Status: Inpatient Order (span 2 midnights) Reason for Inpatient Admission: IOL at term Plan Plan: Induction Induction Method: CARI STOUT DO Apr 12, 2021 08:21
[2021-04-12] MEDS ORDERED: OXYTOCIN PRE-MIX DRIP 500 ML IV SCH ×2 (08:30→22:30)
[2021-04-12] MEDS ORDERED: fentaNYL 2 mcg/ml BUPIVA 0.125 100 ML ONE (11:06)
[2021-04-12] MEDS ORDERED: fentaNYL INJ 100 MCG/2 ML AMP ONE ×2 (11:55→22:37)
[2021-04-12] MEDS ORDERED: BUPIVACAINE 0.25% 30 ML (SENSORCAINE) VIAL ONE (11:55)
[2021-04-12] MEDS: EPIDURAL (fentaNYL 2 MCG/ML BUPIVA 0.125%)100 ML BAG EPI PRN ×2 (12:15→19:33)
[2021-04-12] MEDS ORDERED: fentaNYL INJ 100 MCG/2 ML AMP INJ ONE (12:30)
[2021-04-12] MEDS ORDERED: LACTATED RINGERS 1,000 ML IV ONE ×2 (12:30)
[2021-04-12] MEDS ORDERED: NALOXONE 0.4 MG/ML 1 ML (NARCAN) VIAL IV PRN ×2 (12:30→22:30)
[2021-04-12] MEDS: ONDANSETRON 4 MG/2 ML (SDV) Z0FRAN IV PRN ×2 (12:42→18:10)
[2021-04-12] MEDS ORDERED: CATHETER FLUSH 10 ML SYR IV SCH (14:00)
[2021-04-12] MEDS ORDERED: LIDOCAINE/EPI 2% 1:200,00 (XYLOCAINE) 10 ML VIAL ONE (19:28)
[2021-04-12] MEDS ORDERED: CITRIC ACID/SOB CIT (BICITRA) 30 ML UDC ONE (20:21)
[2021-04-12] MEDS ORDERED: METOCLOPRAMIDE INJ 10 MG/2 ML (REGLAN) ONE (20:21)
[2021-04-12] MEDS ORDERED: ceFAZolin 2 GM IV Premixed 50 ML ONE (20:21)
[2021-04-12] MEDS ORDERED: FAMOTIDINE 20MG/2ML IV (PEPCID) ONE (20:21)
--- NOTE | 2021-04-12 22:18 | Progress Note ---
Standard Progress Note Progress Notes/Assess & Plan Date Seen by a Provider: Apr 12, 2021 Time Seen by a Provider: 10:00 Progress/Assessment & Plan Patient admitted for IOL due to polyhydramnios, GDM, GHTN, and cervical dilatation secondary to cervical incompetence. She had her cerclage removed on Friday and was sent over for monitoring and found to not be in labor, however due to her GDM and Poly decision was made to deliver this week. Risk reviewed and patient admitted this AM, AROM performed, and pitocin augmentation used with regular contraction pattern achieved at 12 mu/min. She received an epidural and progressed to 8 cm, when cervical change stopped. caput began to develop. Despite 4-5 hours of adequate contractions the patient stopped cervical change at 8 cm, due to failure to progress, decision was reviewed with the patient to proceed with PLTCS. Risk reviewed and patient will be taken for delivery once OR staff arrives. CARI BARTON DO Apr 12, 2021 22:18
--- NOTE | 2021-04-12 22:23 | Discharge Inst-Women's Service ---
Discharge Inst-Women's Serv Depart Medication/Instructions New, Converted or Re-Newed RX: Transmitted to Pharmacy Final Diagnosis POD 2 PLTCS Problems Reviewed?: Yes Consults/Follow Up Additional Follow Up: Yes Orders/Referrals Dr. Cerrato in 7-10 days and in 6 weeks Activity Activity: Activity as Tolerated Driving Instructions: No Driving for 1 Week NO SMOKING: NO SMOKING Nothing Inside Vagina: No Douching, No [place], No Tampons Diet Discharge Diet: No Restrictions Symptoms to Report to : Bleeding Excessive, Pain Increased, Fever Over 101 Degrees F, Vaginal Bleeding Increase, Questions/Concerns For Any Problems or Questions: Contact Your Physician Skin/Wound Care Infection Signs and Symptoms: Increased Redness, Foul Odor of Wound, Increased Drainage, Skin Itchy or Has a Rash, Increased Swelling, Temperature Above 101 F Operative Area Clean and Dry: Keep Incision Clean/Dry Stitches/[place]/Dermabond: Dermabond, Care of Stitches Bathing Instructions: CAIR Harrell DO Apr 12, 2021 22:23
[2021-04-12] MEDS ORDERED: DOCU100C37 PO (22:25)
[2021-04-12] MEDS ORDERED: ACHD5005 PO (22:25)
[2021-04-12] MEDS ORDERED: IBUP-844 PO (22:25)
[2021-04-12] MEDS ORDERED: MEASLES,MUMPS,RUBELLA 1 EA INJ SC SCH (22:30)
[2021-04-12] MEDS ORDERED: TETANUS,DIPTH,PERTUSS P/F (BOOSTRIX) 0.5 ML VIAL IM SCH (22:30)
[2021-04-12] MEDS ORDERED: ONDANSETRON 4 MG/2 ML (SDV) Z0FRAN IVP PRN (22:30)
[2021-04-12] MEDS ORDERED: FAMOTIDINE 20MG/2ML IV (PEPCID) IVP ONE (22:30)
[2021-04-12] MEDS ORDERED: METOCLOPRAMIDE INJ 10 MG/2 ML (REGLAN) IV ONE (22:45)
[2021-04-12] MEDS ORDERED: LACTATED RINGERS 1,000 ML IV PRN ×2 (22:45)
[2021-04-12] MEDS ORDERED: FAMOTIDINE 20MG/2ML IV (PEPCID) IV ONE (22:45)
[2021-04-12] MEDS ORDERED: CITRIC ACID/SOB CIT (BICITRA) 30 ML UDC PO ONE (22:45)
[2021-04-12] MEDS ORDERED: ROPIVACAINE 5MG/ML 30ML VIAL ONE (22:53)
[2021-04-12] MEDS ORDERED: PHENYLEPHRINE 100 MCG/ML 10 ML (ANESTHESIA) SYR ONE (23:42)
[2021-04-13] VITALS (11 sets, daily range): BP systolic 104–141; BP diastolic 56–92
[2021-04-13] MEDS ORDERED: ONDANSETRON 4 MG/2 ML (SDV) Z0FRAN IVP PRN (00:15)
[2021-04-13] MEDS ORDERED: MEPERIDINE (DEMEROL) INJ 50 MG/ML IVP ONE (00:15)
[2021-04-13] MEDS ORDERED: HYDROmorphone 2 MG/ML VIAL (DILAUDID) IV ONE (00:15)
[2021-04-13] MEDS: KETOROLAC 30 MG/ML VIAL IV SCH ×4 (00:24→17:51)
--- NOTE | 2021-04-13 00:31 | OPERATIVE REPORT ---
DATE OF SERVICE: PREOPERATIVE DIAGNOSES: 1. A 36-year-old G2, P0 at 37 weeks and 6 days gestation. 2. Failure to progress. 3. Gestational diabetes class A2. 4. Advanced maternal age. 5. Gestational hypertension. POSTOPERATIVE DIAGNOSES: 1. A 36-year-old G2, P0 at 37 weeks and 6 days gestation. 2. Failure to progress. 3. Gestational diabetes class A2. 4. Advanced maternal age. 5. Gestational hypertension. PROCEDURE: Primary low transverse section. SURGEON: Ruy Cerrato DO ANESTHESIA: Spinal. ESTIMATED BLOOD LOSS: 600 mL. URINE OUTPUT: 125 mL clear at the end of the procedure. FLUIDS: 1500 mL lactated Ringer's solution. FINDINGS: A live male weighing 6 pounds 4 ounces, Apgars of 8 and 9. 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 SPECIMEN SENT: Placenta. INDICATIONS FOR PROCEDURE: A 36-year-old female is a patient who was brought in for induction of labor due to gestational diabetes. Please see my preoperative note for complete details pertaining to her labor course, indications for procedure. DESCRIPTION OF PROCEDURE: Once in the operating room, spinal analgesia was found to be adequate. She was placed in supine position with leftward tilt, prepped and draped in normal sterile fashion. A timeout was performed, and anesthesia was tested. I then make a Pfannenstiel skin incision with a knife and carried down to underlying fascia using Bovie cautery. The fascial incision extended laterally using Bovie cautery. Superior aspect of fascial incision was then grasped with Ofelia clamps, tented up and dissected off the underlying rectus muscles. The inferior aspect of the fascial incision was then grasped with Ofelia clamps, tented up and dissected off the underlying rectus muscles. The rectus muscles were dissected down the midline using sharp dissection, which exposed the peritoneum, which I entered bluntly and extended using blunt traction. Pete ring retractor was placed within the peritoneal incision, which offers excellent lateral sidewall retraction. I identified the lower uterine segment, which was found to be thinned out and make a low transverse incision to the vesicouterine peritoneum and bluntly dissected this off the lower uterine segment, creating a bladder flap. I then proceeded with my myotomy until membranes were visualized, at which point I extended the uterine incision laterally and superiorly using bandage scissors. Amniotomy was performed in the process of doing this, clear fluid was noted. The was found in vertex presentation, occiput posterior. With gentle fundal pressure, the infant's head was elevated up the incision where it was delivered through the incision. The nares and oropharynx were bulb suctioned and nuchal cord was reduced x2. Anterior and posterior shoulders were delivered. was then brought to the operative field. The cord was doubly clamped and cut. The infant was handed off to waiting nurses in attendance. Cord blood was collected, 3-vessel cord with intact placenta was delivered spontaneously thereafter. IV Pitocin was initiated to facilitate uterine contraction. Uterine fundus became firmer with bimanual massage. The uterus was then exteriorized and cleared of all endometrial clots and debris. I then proceeded with closing the uterine incision using 0 Vicryl suture in running locked fashion. Second layer of imbricating 0 Monocryl was placed. Excellent hemostasis was noted after doing this. I then placed the uterus back in the pelvis and copiously irrigated the pelvis using normal saline. Once again, there was no active bleeding noted from any of my dissection planes. I placed Interceed antiadhesive over my low transverse incision. I removed the Pete ring retractor and proceeded with closing the peritoneum using 3-0 Vicryl suture in running fashion. Rectus muscle reapproximated using 3-0 Vicryl suture in interrupted fashion. The fascia was reapproximated using 0 Vicryl suture in running fashion. Subcutaneous tissue was reapproximated using 3-0 plain interrupted subcutaneous stitch and skin was reapproximated using 4-0 Monocryl running subcuticular. Dermabond was applied to incision and sterile dressings with adhesive white tape. The patient tolerated the procedure well and sent to recovery area in stable condition. Lap and sponge counts were correct at the end of the procedure. Instrument counts correct as well. Two grams of Ancef given preoperatively for infection prophylaxis. Job ID: [id number] DocumentID: [id number] Dictated Date: 04/12/2021 23:55:56 Brake Repairer Hydraulic Date: 04/13/2021 00:30:52 Dictated By: DO SIVAN HERR
[2021-04-13] MEDS ORDERED: OXYTOCIN PRE-MIX DRIP 500 ML IV ONE (02:17)
[2021-04-13] MEDS ORDERED: CATHETER FLUSH 10 ML SYR IV SCH (06:00)
[2021-04-13 06:36] LABS: BASOPHILS % (AUTO) 0 % (0-10); EOSINOPHILS % (AUTO) 0 % (0-10); HEMATOCRIT 35 % (35-52); HEMOGLOBIN 12.3 g/dL (11.5-16.0); LYMPHOCYTES # (AUTO) 2.1 10^3/uL (1.0-4.0); LYMPHOCYTES % (AUTO) 16 % (12-44); MEAN CORPUSCULAR HEMOGLOBIN 33 pg (25-34); MEAN CORPUSCULAR HGB CONC 35 g/dL (32-36); MEAN CORPUSCULAR VOLUME 95 fL (80-99); MEAN PLATELET VOLUME 11.1 fL (9.0-12.2); MONOCYTES % (AUTO) 7 % (0-12); NEUTROPHILS # (AUTO) 10.5 10^3/uL (1.8-7.8); NEUTROPHILS % (AUTO) 77 % (42-75); PLATELET COUNT 223 10^3/uL (130-400); WHITE BLOOD COUNT 13.7 10^3/uL (4.3-11.0)
[2021-04-13] MEDS ORDERED: FAMOTIDINE 20MG/2ML IV (PEPCID) IVP SCH (09:00)
[2021-04-13] MEDS: HYDROcodone/APAP 5 MG/325 MG (LORTAB) TAB PO PRN ×2 (09:03→14:34)
[2021-04-13] MEDS: DOCUSATE SODIUM 100 MG (COLACE) CAP PO SCH ×2 (09:03→20:54)
--- NOTE | 2021-04-13 11:04 | Postpartum Progress Note ---
Post Op Post-operative Day #1 s/p PLTCS Subjective: Patient is without complaints. Ambulating, voiding after noe removed. Tolerating a regular diet without nausea or vomiting. Normal lochia. Pain is well controlled with oral pain medications. Passing flatus. Objective: 04/12/21 04/12/21 04/13/21 04/13/21 23:54 23:54 00:01 00:15 Temp 37.1 Resp 16 20 20 B/P (MAP) 100/59 (73) 105/58 (74) 104/66 (79) Pulse Ox 97 100 99 O2 Delivery Room Air Room Air Room Air Room Air 04/13/21 04/13/21 04/13/21 04/13/21 00:15 00:30 00:30 00:45 Temp 36.9 Resp 18 18 B/P (MAP) 108/56 (73) 119/85 (96) Pulse Ox 100 100 O2 Delivery Room Air Room Air Room Air Room Air 04/13/21 04/13/21 04/13/21 04/13/21 00:50 00:55 06:43 08:32 Temp 37.0 36.8 36.6 Pulse 144 105 111 Resp 18 18 16 B/P (MAP) 138/89 (105) 124/86 (99) 131/90 (104) Pulse Ox 99 98 97 O2 Delivery Room Air Room Air Room Air Room Air 04/13/21 00:00 Intake Total 1050 ml Output Total 250 ml Balance 800 ml Laboratory Tests Test 04/13/21 05:14 Range/Units White Blood Count 13.7 H 4.3-11.0 10^3/uL Red Blood Count 3.71 L 3.80-5.11 10^6/uL Hemoglobin 12.3 # 11.5-16.0 g/dL Hematocrit 35 35-52 % Mean Corpuscular Volume 95 80-99 fL Mean Corpuscular Hemoglobin 33 25-34 pg Mean Corpuscular Hemoglobin Concent 35 32-36 g/dL Red Cell Distribution Width 13.8 10.0-14.5 % Platelet Count 223 130-400 10^3/uL Mean Platelet Volume 11.1 9.0-12.2 fL Immature Granulocyte % (Auto) 0 % Neutrophils (%) (Auto) 77 H 42-75 % Lymphocytes (%) (Auto) 16 12-44 % Monocytes (%) (Auto) 7 0-12 % Eosinophils (%) (Auto) 0 0-10 % Basophils (%) (Auto) 0 0-10 % Neutrophils # (Auto) 10.5 H 1.8-7.8 10^3/uL Lymphocytes # (Auto) 2.1 1.0-4.0 10^3/uL Monocytes # (Auto) 1.0 0.0-1.0 10^3/uL Eosinophils # (Auto) 0.0 0.0-0.3 10^3/uL Basophils # (Auto) 0.0 0.0-0.1 10^3/uL Immature Granulocyte # (Auto) 0.1 0.0-0.1 10^3/uL Physical Exam: General - Alert and oriented, no apparent distress Abdomen - Soft, appropriately tender to palpation, non-distended, fundus firm at umbilicus Incision - clean, dry and intact; no erythema or induration, no drainage Extremities - no edema, negative Niels's bilaterally Assessment: 1. post-operative day # 1, status post PLTCS. Recovering well, hemodynamically stable Plan: Routine post-operative care. Encourage breast feeding. Encourage ambulation. VTE prophylaxis: SCDs. Ferrous sulfate supplementation. Plan for discharge tomorrow Vitals - Labs Vital Signs - I&O Vital Signs Date Time Temp Pulse Resp B/P (MAP) Pulse Ox O2 Delivery O2 Flow Rate FiO2 04/13/21 08:32 36.6 111 16 131/90 (104) 97 Room Air 04/13/21 06:43 36.8 105 18 124/86 (99) 98 Room Air 04/13/21 00:55 37.0 144 18 138/89 (105) 99 Room Air 04/13/21 00:50 Room Air 04/13/21 00:45 36.9 18 119/85 (96) 100 Room Air 04/13/21 00:30 Room Air 04/13/21 00:30 18 108/56 (73) 100 Room Air 04/13/21 00:15 Room Air 04/13/21 00:15 20 104/66 (79) 99 Room Air 04/13/21 00:01 20 105/58 (74) 100 Room Air 04/12/21 23:54 37.1 16 100/59 (73) 97 Room Air 04/12/21 23:54 Room Air 04/12/21 22:51 144 20 96 Room Air 04/12/21 22:45 144 20 127/93 (104) 95 Room Air 04/12/21 22:30 37.0 134 20 131/89 (103) 94 Room Air 04/12/21 22:15 137 20 133/90 (104) 96 Room Air 04/12/21 22:00 131 20 147/94 (111) 97 Room Air 04/12/21 21:45 130 20 127/89 (102) 96 Room Air 04/12/21 21:30 129 20 126/92 (103) 97 Room Air 04/12/21 21:15 130 20 124/85 (98) 96 Room Air 04/12/21 21:00 133 20 126/86 (99) 97 Room Air 04/12/21 20:45 131 20 133/93 (106) 97 Room Air 04/12/21 20:30 136 20 137/91 (106) 96 Room Air 04/12/21 20:15 137 20 134/92 (106) 98 Room Air 04/12/21 20:00 133 20 137/91 (106) 97 Room Air 04/12/21 19:45 142 20 125/88 (100) 97 Room Air 04/12/21 19:30 137 20 96 Room Air 04/12/21 19:15 131 20 126/89 (101) 95 Room Air 04/12/21 18:46 139 20 180/104 (129) 98 Room Air 04/12/21 18:30 126 20 132/93 (106) 96 Room Air 04/12/21 18:15 125 20 131/93 (106) 96 Room Air 04/12/21 18:05 37.7 04/12/21 18:00 131 20 126/83 (97) 98 Room Air 04/12/21 17:45 124 20 122/84 (97) 94 Room Air 04/12/21 17:30 125 20 131/87 (102) 98 Room Air 04/12/21 17:14 125 20 126/76 (93) 98 Room Air 04/12/21 17:00 124 20 120/81 (94) 98 Room Air 04/12/21 16:44 127 18 123/81 (95) 98 Room Air 04/12/21 16:30 124 18 120/79 (93) 98 Room Air 04/12/21 16:16 136 18 142/97 (112) 98 Room Air 04/12/21 15:45 129 18 120/88 (99) 98 Room Air 04/12/21 15:15 131 18 126/91 (103) 96 Room Air 04/12/21 15:00 131 18 126/91 (103) 99 Room Air 04/12/21 14:44 127 18 128/92 (104) 99 Room Air 04/12/21 14:37 36.9 04/12/21 14:30 115 18 130/92 (105) 99 Room Air 04/12/21 14:14 119 18 125/95 (105) 98 Room Air 04/12/21 14:00 121 18 122/92 (102) 98 Room Air 04/12/21 13:47 121 18 132/92 (105) 98 Room Air 04/12/21 13:30 36.4 123 18 99 Room Air 04/12/21 13:25 110 18 123/92 (102) 99 Room Air 04/12/21 13:20 117 18 125/88 (100) 99 Room Air 04/12/21 13:15 117 18 133/89 (104) 98 Room Air 04/12/21 13:10 115 18 125/90 (102) 98 Room Air 04/12/21 13:05 102 18 128/86 (100) 98 Room Air 04/12/21 13:00 105 18 133/95 (108) 98 Room Air I & O 04/13/21 07:00 Intake Total 1050 ml Output Total 350 ml Balance 700 ml Labs Laboratory Tests 04/13/21 05:14: White Blood Count 13.7H, Red Blood Count 3.71L, Hemoglobin 12.3#, Hematocrit 35, Mean Corpuscular Volume 95, Mean Corpuscular Hemoglobin 33, Mean Corpuscular Hemoglobin Concent 35, Red Cell Distribution Width 13.8, Platelet Count 223, Mean Platelet Volume 11.1, Immature Granulocyte % (Auto) 0, Neutrophils (%) (Auto) 77H, Lymphocytes (%) (Auto) 16, Monocytes (%) (Auto) 7, Eosinophils (%) (Auto) 0, Basophils (%) (Auto) 0, Neutrophils # (Auto) 10.5H, Lymphocytes # (Auto) 2.1, Monocytes # (Auto) 1.0, Eosinophils # (Auto) 0.0, Basophils # (Auto) 0.0, Immature Granulocyte # (Auto) 0.1 Microbiology 04/12/21 Urine Culture - Final, Complete Mixed Bacterial Michelle OMARI RICHARDS DO Apr 13, 2021 11:04
--- NOTE | 2021-04-13 12:25 | Anesthesia-Regional Post-Op ---
Regional Patient Condition Mental Status: Alert, Oriented x3 Circulation: Same as Pre-Op Headache: Absent Sensation: Full Recovery Motor Block: Absent Post Op Complications Complications None Follow Up Care/Instructions Patient Instructions None needed. Anesthesia/Patient Condition Patient is doing well, no complaints, stable vital signs, no apparent adverse anesthesia problems. No complications reported per nursing. MARIANNE HARTMANN CRNA Apr 13, 2021 12:25
[2021-04-13] MEDS: IBUPROFEN 600 MG (MOTRIN) TAB PO SCH (23:54)
[2021-04-14 06:10] VITALS: BP 140/94
[2021-04-14] MEDS: IBUPROFEN 600 MG (MOTRIN) TAB PO SCH ×2 (06:10→11:42)
[2021-04-14 06:16] LABS: BASOPHILS % (AUTO) 0 % (0-10); EOSINOPHILS % (AUTO) 0 % (0-10); HEMATOCRIT 36 % (35-52); HEMOGLOBIN 12.3 g/dL (11.5-16.0); LYMPHOCYTES # (AUTO) 1.8 10^3/uL (1.0-4.0); LYMPHOCYTES % (AUTO) 16 % (12-44); MEAN CORPUSCULAR HEMOGLOBIN 33 pg (25-34); MEAN CORPUSCULAR HGB CONC 35 g/dL (32-36); MEAN CORPUSCULAR VOLUME 96 fL (80-99); MEAN PLATELET VOLUME 10.3 fL (9.0-12.2); MONOCYTES # (AUTO) 0.7 10^3/uL (0.0-1.0); MONOCYTES % (AUTO) 6 % (0-12); NEUTROPHILS # (AUTO) 9.1 10^3/uL (1.8-7.8); NEUTROPHILS % (AUTO) 78 % (42-75); PLATELET COUNT 200 10^3/uL (130-400); WHITE BLOOD COUNT 11.7 10^3/uL (4.3-11.0)
[2021-04-14 08:00] VITALS: BP 130/88
[2021-04-14] MEDS: DOCUSATE SODIUM 100 MG (COLACE) CAP PO SCH (08:29)
--- NOTE | 2021-04-14 11:39 | Postpartum Progress Note ---
Note Note Day #2 Subjective: Patient is without complaints. Ambulating, voiding. Tolerating a regular diet without nausea or vomiting. Normal lochia. Pain is well controlled with oral pain medications. Objective: Physical Exam: General - Alert and oriented, no apparent distress Abdomen - Soft, appropriately tender to palpation, non-distended, fundus firm at umbilicus Extremities - no edema, negative Niels's bilaterally Incision- c/d/i Assessment: POD 2 PLTCS Plan: Routine care. Encourage breast feeding. Encourage ambulation. Ferrous sulfate supplementation. Plan for discharge today Vitals - Labs Vital Signs - I&O Vital Signs Date Time Temp Pulse Resp B/P (MAP) Pulse Ox O2 Delivery O2 Flow Rate FiO2 04/14/21 08:00 36.4 99 18 130/88 (102) 97 Room Air 04/14/21 06:10 36.5 110 18 140/94 (109) 96 Room Air 04/13/21 23:52 36.8 109 18 123/79 (94) 95 Room Air 04/13/21 19:14 36.9 114 20 128/82 (97) 95 Room Air 04/13/21 15:23 36.9 122 20 141/92 (108) 95 Room Air Labs Laboratory Tests 04/14/21 05:56: White Blood Count 11.7H, Red Blood Count 3.72L, Hemoglobin 12.3, Hematocrit 36, Mean Corpuscular Volume 96, Mean Corpuscular Hemoglobin 33, Mean Corpuscular Hemoglobin Concent 35, Red Cell Distribution Width 14.2, Platelet Count 200, Mean Platelet Volume 10.3, Immature Granulocyte % (Auto) 0, Neutrophils (%) (Auto) 78H, Lymphocytes (%) (Auto) 16, Monocytes (%) (Auto) 6, Eosinophils (%) (Auto) 0, Basophils (%) (Auto) 0, Neutrophils # (Auto) 9.1H, Lymphocytes # (Auto) 1.8, Monocytes # (Auto) 0.7, Eosinophils # (Auto) 0.0, Basophils # (Auto) 0.0, Immature Granulocyte # (Auto) 0.1 Microbiology 04/12/21 Urine Culture - Final, Complete Mixed Bacterial Michelle CARI BARTON DO Apr 14, 2021 11:39
[2021-04-14] MEDS: HYDROcodone/APAP 5 MG/325 MG (LORTAB) TAB PO PRN (15:48)
== END 2021-04-14 16:10 | disposition home or self-care (01) | DRG 786 ==
LOC: WSo 05:59 → LDRP 06:00
PROVIDERS: ADMIT Obstetrics & Gynecology; ATTEND Obstetrics & Gynecology
PROC: 10D00Z1 Extraction of Products of Conception, Low, Open Approach (ICD-10-PCS; principal; 2021-04-13)
DX: O40.3XX0 Polyhydramnios, third trimester, not applicable or unspecified (principal); O34.33 Maternal care for cervical incompetence, third trimester; O24.429 Gestational diabetes mellitus in childbirth, unspecified control; Z3A.37 37 weeks gestation of pregnancy; Z37.0 Single live birth; O13.4 Gestational [pregnancy-induced] hypertension without significant proteinuria, complicating childbirth; O62.1 Secondary uterine inertia
CPT/HCPCS: 36415; 81000; 85025; 86850; 86900; 86901; 87088; 90715

== ENCOUNTER → 2021-05-28 | Outpatient (CLI) | payer BC ==
[~2021-05-28] MED LIST changes: +ACHD5005 PO; +DOCU100C37 PO; +IBUP-844 PO
--- NOTE | 2021-05-28 15:34 | Diagnostic Imaging Report ---
PROCEDURE: US Non-ob pelvis comp/trans. TECHNIQUE: Multiple realtime grayscale images were obtained of the pelvis in various projections endovaginally. Transabdominal imaging was also performed. INDICATION: Ovarian cyst follow-up. FINDINGS: The uterus measures 8.0 x 4.5 x 6.6 cm. Endometrial stripe is 9 mm. The ovaries are normal in size with normal blood flow. There are no ovarian masses seen. There is no ascites. IMPRESSION: Unremarkable pelvic ultrasound. Dictated by: Dictated on workstation # [id number]
== END ==
LOC: RAD 14:00
PROVIDERS: ATTEND Obstetrics & Gynecology
DX: N83.291 Other ovarian cyst, right side (principal)
CPT/HCPCS: 76830; 76856

== ENCOUNTER 2022-10-22 05:33 | Outpatient (CLI) | payer BC ==
[~2022-10-22] VITALS: Ht 165.1 cm; Wt 90.0 kg
[2022-10-22] MEDS ORDERED: MONT-40 PO (14:58)
[2022-10-22] MEDS ORDERED: ALPR0.5T7 PO (14:58)
== END 2022-10-22 15:10 ==
LOC: PREOP 05:33
PROVIDERS: ATTEND Obstetrics & Gynecology
DX: Z01.818 Encounter for other preprocedural examination (principal); N93.9 Abnormal uterine and vaginal bleeding, unspecified